=== PATIENT | male | born 1935 | race Caucasian/White ===

== ENCOUNTER 2017-06-05 10:24 | Inpatient (IN) | payer MEDICARE, BC ==
[~2017-06-05] VITALS: Ht 182.9 cm; Wt 110.0 kg
--- NOTE | ~2017-06-05 | EC ---
PATIENT:YESY LOMBARDO DATE OF SERVICE: 06/06/17 SEX: M MEDICAL RECORD: [id number] DATE OF : [birth year] LOCATION:[facility] AGE OF PATIENT: 81 ADMISSION DATE: 06/06/17 REFERRING PHYSICIAN: INTERPRETING PHYSICIAN: CLYDE PETERSON MD ECHOCARDIOGRAM REPORT ECHO CHARGES 5 ECHO LIMITED CLINICAL DIAGNOSIS: TIA VS RIND HX OF CAD/STENTS/CVA/HTN ECHOCARDIOGRAPHIC MEASUREMENTS (adult normal given) AC root (d.<3.7cm) cm LV Septum d (<1.2 cm> cm Valve Excursion cm LV Septum (systole) cm Left Atria (s.<4.0cm> 3.8 cm LVPW d(<1.2cm) cm RV (d.<2.3cm) 4.4 cm LVPW (sytole) cm LV diastole(<5.6CM) 5.1 cm MV E-F(>70mm/sec) cm LV systole 3.8 cm LVOT Diameter cm MV exc.(>10mm) cm Est.ejection fraction (50-75%) % Pericardial Effusion N DOPPLER: LVIT cm/sec A 93.0 cm/sec E 65.0 cm/sec LA cm/sec RVSP mmHg LVOT cm/sec AOP1/2T m/s Asc. Ao cm/sec RVOT cm/sec RA cm/sec PA cm/sec AV Gradient Peak mmHg AV Mean mmHg AV Area cm MV Gradient Peak mmHg MV Mean mmHg MV Area cm COMMENTS: Fast Food Fry Cook: Kerri VAUGHN Rehab Consultant: 3 Dr. Springer TAPE# PACS DATE OF SERVICE: 06/06/2017 Adequate 2D echo, color flow and spectral Doppler, M-mode. Grossly No LVH. LV internal dimension is normal. Wall motion is normal. EF is greater than or equal to 55%. No evidence of aortic stenosis with Doppler interrogation. Left atrium is normal at 3.8 cm. Mitral valve is thickened. Trace MR. Right-sided chamber is grossly normal. Trace TR. TRANSINT:[id number] Voice Confirmation ID: [id number] DOCUMENT ID: [id number] ECHOCARDIOGRAM REPORT [id number] GRUPOCLYDE ELENA MD at 0919 CC: [id number] DICTATION DATE: 06/06/17 1421 DEVELOPMENT TECHNICAL LEAD: 06/06/17 2342 DIS IN 06/07/17 [facility] [address] [place] [address]
--- NOTE | ~2017-06-05 | EC ---
PATIENT:YESY LOMBARDO DATE OF SERVICE: 06/06/17 SEX: M MEDICAL RECORD: [id number] DATE OF : [birth year] LOCATION:[facility] AGE OF PATIENT: 81 ADMISSION DATE: 06/06/17 REFERRING PHYSICIAN: INTERPRETING PHYSICIAN: SRIKANTH TRUJILLO MD ECHOCARDIOGRAM REPORT ECHO CHARGES 5 ECHO LIMITED CLINICAL DIAGNOSIS: TIA VS RIND HX OF CAD/STENTS/CVA/HTN ECHOCARDIOGRAPHIC MEASUREMENTS (adult normal given) AC root (d.<3.7cm) cm LV Septum d (<1.2 cm> cm Valve Excursion cm LV Septum (systole) cm Left Atria (s.<4.0cm> 3.8 cm LVPW d(<1.2cm) cm RV (d.<2.3cm) 4.4 cm LVPW (sytole) cm LV diastole(<5.6CM) 5.1 cm MV E-F(>70mm/sec) cm LV systole 3.8 cm LVOT Diameter cm MV exc.(>10mm) cm Est.ejection fraction (50-75%) % Pericardial Effusion N DOPPLER: LVIT cm/sec A 93.0 cm/sec E 65.0 cm/sec LA cm/sec RVSP mmHg LVOT cm/sec AOP1/2T m/s Asc. Ao cm/sec RVOT cm/sec RA cm/sec PA cm/sec AV Gradient Peak mmHg AV Mean mmHg AV Area cm MV Gradient Peak mmHg MV Mean mmHg MV Area cm COMMENTS: Senior Copywriter: Kerri VAUGHN Window Unit Air Conditioning Mechanic: 3 Dr. Springer TAPE# PACS DATE OF SERVICE: 06/06/2017 PROCEDURE: Transthoracic echocardiogram. FINDINGS: 1. The left ventricle is shown to have difficult to see LV function, but appears to be grossly normal. 2. The left atrium, right atrium, and right-sided structures appeared to be normal. There is no evidence of significant valvular abnormalities. There is some inflow characteristics suggestive of diastolic dysfunction. ECHOCARDIOGRAM REPORT [id number] YESY LOMBARDO CONCLUSIONS: This is a grossly normal echocardiogram with mildly dilated right-sided structures and evidence of diastolic dysfunction with a preserved LV systolic function. TRANSINT:[id number] Voice Confirmation ID: [id number] DOCUMENT ID: [id number] SRIKANTH TRUJILLO MD at 1214 CC: [id number] DICTATION DATE: 06/08/17 1201 FIRE WATCHER: 06/08/17 1223 DIS IN 06/07/17 [facility] [address] [place] [address]
[2017-06-05 11:11] LABS: BASOPHILS 0.2 % (0-2); EOSINOPHILS 3.1 % (0-7); HEMATOCRIT 42.5 % (42.0-54.0); HEMOGLOBIN 13.6 g/dL (13.5-17.5); IMMATURE GRANULOCYTES 0.2 % (0-5); LYMPHOCYTES 20.5 % (15-50); MCH 29.4 pg (26.0-34.0); MCV 91.8 fL (80.0-100.0); MONOCYTES 7.2 % (2-11); NEUTROPHILS 68.8 % (40-80); PLATELET COUNT 245 10x3/uL (130-400); RBC 4.63 10x6/uL (4.20-6.10); WBC 8.8 10x3/uL (4.8-10.8)
[2017-06-05 11:24] LABS: ALBUMIN 3.2 g/dL (3.4-5.0); ANION GAP 12.1 mmol/L (8-16); BILIRUBIN - TOTAL 0.4 mg/dL (0.2-1.3); CALCIUM 8.5 mg/dL (8.5-10.1); CREATININE - SERUM 1.1 mg/dL (0.6-1.3); POTASSIUM - SERUM 4.1 mmol/L (3.5-5.1); PROTEIN - SERUM 6.8 g/dL (6.4-8.2)
[2017-06-05 11:34] LABS: INR 0.98 (0.85-1.17); PROTIME 12.6 SECONDS (11.6-15.0)
[2017-06-05 11:36] LABS: CREATINE KINASE 59 UL (21-232); MAGNESIUM - SERUM 2.1 mg/dL (1.8-2.4); PRO BNP 187 pg/mL (0-450); TROPONIN-I < 0.017 ng/mL (0.000-0.060)
[2017-06-05 11:54] LABS: APPEARANCE CLEAR (CLEAR); BILIRUBIN NEGATIVE (NEGATIVE); COLOR YELLOW (YELLOW); GLUCOSE NEGATIVE (NEGATIVE); KETONE NEGATIVE (NEGATIVE); NITRITE NEGATIVE (NEGATIVE); PROTEIN NEGATIVE (NEGATIVE); UROBILINOGEN NORMAL (NORMAL)
[2017-06-05] MEDS ORDERED: ZESTRIL40 MG PO (18:20)
[2017-06-05] MEDS ORDERED: LAMICTAL25 MG PO (18:21)
[2017-06-05] MEDS ORDERED: GLIPIZIDE10 MG PO (18:21)
[2017-06-05] MEDS ORDERED: PRAVACHOL40 MG PO (18:22)
[2017-06-05] MEDS ORDERED: NEURONTIN 300300 MG PO (18:22)
[2017-06-05] MEDS ORDERED: LEXAPRO10 MG PO (18:23)
[2017-06-05 20:01] VITALS: BP 143/83; BMI 32.9
[2017-06-05] MEDS ORDERED: OXYCODONE HCL5 MG PO (20:37)
[2017-06-05] MEDS ORDERED: DIFLUCAN150 MG PO (20:38)
[2017-06-05 21:07] VITALS: BP 157/94
[2017-06-06 01:58] VITALS: BP 147/80
[2017-06-06 05:24] VITALS: BP 164/85
[2017-06-06 08:53] VITALS: BP 150/75
[2017-06-06 09:24] LABS: BASOPHILS 0.3 % (0-2); HEMATOCRIT 40.4 % (42.0-54.0); HEMOGLOBIN 12.8 g/dL (13.5-17.5); LYMPHOCYTES 29.7 % (15-50); MCH 28.9 pg (26.0-34.0); MCHC 31.7 g/dL (31.0-37.0); MCV 91.2 fL (80.0-100.0); MEAN PLATELET VOLUME 9.6 fL (7.4-10.4); MONOCYTES 8.2 % (2-11); NEUTROPHILS 57.8 % (40-80); PLATELET COUNT 262 10x3/uL (130-400); RBC 4.43 10x6/uL (4.20-6.10); RDW 13.8 % (11.5-14.5)
[2017-06-06 09:26] LABS: WBC 6.2 10x3/uL (4.8-10.8)
[2017-06-06 09:27] LABS: APTT 34.7 SECONDS (22.8-39.4); INR 1.02 (0.85-1.17)
[2017-06-06 09:30] LABS: ALBUMIN 3.1 g/dL (3.4-5.0); ANION GAP 11.9 mmol/L (8-16); BILIRUBIN - TOTAL 0.41 mg/dL (0.2-1.3); CALCIUM 8.9 mg/dL (8.5-10.1); CARBON DIOXIDE 28.1 mmol/L (21.0-32.0); CREATININE - SERUM 1.1 mg/dL (0.6-1.3); PHOSPHOROUS 3.8 mg/dL (2.5-4.9); PROTEIN - SERUM 6.6 g/dL (6.4-8.2)
[2017-06-06 10:46] VITALS: Ht 182.9 cm; Wt 110.0 kg
[2017-06-06 11:33] LABS: CHOL - HDL RATIO 3.9 ratio (2.3-4.9); LDL-HDL RATIO 2.4 ratio (1.5-3.5)
[2017-06-06 11:34] VITALS: BP 160/86
[2017-06-06 16:23] VITALS: BP 143/86
[2017-06-06 20:00] VITALS: BP 158/79
[2017-06-07] VITALS: BP 147/66
[2017-06-07 04:00] VITALS: BP 142/81
[2017-06-07 08:24] VITALS: BP 167/88
[2017-06-07 12:10] VITALS: BP 182/96
[2017-06-07] MEDS ORDERED: ASPIRIN325 MG PO (12:23)
[2017-06-07 16:39] VITALS: BP 142/88
== END 2017-06-07 17:00 | disposition home or self-care (01) | DRG 65 ==
LOC: D.ER 10:24 → D.MS 14:42 → D.EDHOLD 14:42 → OBSVTIME 14:42 → D.MS 16:37
PROVIDERS: Emergency Medicine; Internal Medicine Nephrology; Nurse Practitioner Family
DX: I63.9 Cerebral infarction, unspecified (principal); I69.354 Hemiplegia and hemiparesis following cerebral infarction affecting left non-dominant side; R13.10 Dysphagia, unspecified; R29.810 Facial weakness; I10 Essential (primary) hypertension; I25.10 Atherosclerotic heart disease of native coronary artery without angina pectoris